=== PATIENT | female | born 1995 | race Caucasian/White ===

== ENCOUNTER → 2016-08-05 | Outpatient (CLI) | payer OTHER ==
[2016-08-05 12:22] LABS: HEMATOCRIT 39.3 % (37.0-47.0); HEMOGLOBIN 13.3 g/dL (12.0-16.0)
== END ==
LOC: MOB LAB 11:46
PROVIDERS: ATTEND Nurse Practitioner Family
DX: N92.0 Excessive and frequent menstruation with regular cycle (principal); N94.6 Dysmenorrhea, unspecified; N93.8 Other specified abnormal uterine and vaginal bleeding
CPT/HCPCS: 36415; 85014; 85018

== ENCOUNTER → 2016-08-06 | Outpatient (CLI) | payer OTHER ==
--- NOTE | 2016-08-06 17:02 | DI ---
History: Menorrhagia. Procedure: Transabdominal imaging with mid frequency transducer. Findings: Uterine length is 5.5 x 5 x 4.3 cm. No free fluid seen. No large mass observed but there is a small myometrial uterine leiomyoma noted anteriorly just below the fundus. Is 1.9 x 1.2 x 1.5 cm a nd may contribute to the patient's menorrhagia. Endometrial stripe thickness is 3 mm currently. Right ovary is 4.8 x 2.8 x 4.7 cm with good flow. The left ovary is 3.8 x 2.3 x 3.3 cm, again good fl ow observed. There is a cyst in the right ovary, somewhat complex at 3.9 x 2.8 x 4.2 cm, which accoun ts for the increased size the right ovary. No solid mass identified. Impression: Single anterior uterine leiomyoma which may account for menorrhagia Right ovarian cyst, probably cyclical. Size would possibly account for pain. Repeat ultrasound may be considered in 6 weeks to document subsidence
--- NOTE | 2016-08-06 17:07 | DI ---
History: Menorrhagia. . This procedure was performed transvaginally using a high frequency transducer. Findings: See separate dictation regarding uterine alignment,. Regarding the left ovary, it has normal size and configuration. There is a fairly sizable right ovari an cyst centrally which occupies a good portion of the ovarian volume right-sided. As seen on the [facility] er report, is 3.9 x 2.8 x 4.2 cm without solid component but does contain what appears to be a cyst w ithin a cyst or perhaps a blood vessel. No free fluid seen. Impression: Uterine leiomyoma. See separate report. Fairly sizable right ovarian cyst. Suggest followup ultrasound in 6 weeks to document subsidence
== END ==
LOC: US 13:54
PROVIDERS: ATTEND Nurse Practitioner Family
DX: N92.0 Excessive and frequent menstruation with regular cycle (principal); N83.201 Unspecified ovarian cyst, right side; D25.9 Leiomyoma of uterus, unspecified
CPT/HCPCS: 76830; 76857

== ENCOUNTER 2016-08-13 21:40 | Emergency (ER) | payer OTHER ==
[2016-08-13 21:53] VITALS: RESP 20; TEMP 98
[2016-08-13] MEDS ORDERED: NORMAL SALINE 10 ML SYRINGE FLUSH IVP PRN (22:02)
[2016-08-13] MEDS: Sodium Chloride 0.9% 1,000 ML PRIMARY IV ONE ×2 (22:45→23:45)
[2016-08-13] MEDS: MORPHINE SULFATE 2 MG/1 ML IV ONE (22:50)
[2016-08-13 23:03] LABS: BASOPHILS # (AUTO) 0.01 10*3/UL; BASOPHILS % (AUTO) 0.1 % (0-1); EOSINOPHILS % (AUTO) 1.4 % (0-8); HEMATOCRIT 40.4 % (37.0-47.0); HEMOGLOBIN 13.8 g/dL (12.0-16.0); IMM GRAN % (AUTO) 0.2 % (0-5); IMM GRAN# (AUTO) 0.02 10*3/UL; LYMPHOCYTES # (AUTO) 2.05 10*3/uL; LYMPHOCYTES % (AUTO) 23.2 % (10-50); MEAN CORPUSCULAR HEMOGLOBIN 29.6 PG (27-31); MEAN CORPUSCULAR HGB CONC 34.2 g/dL (33-37); MEAN PLATELET VOLUME 11.6 FL (7.4-12.2); MONOCYTES # (AUTO) 0.61 10*3/UL (0.3-0.8); MONOCYTES % (AUTO) 6.9 % (5-15); NEUTROPHILS # (AUTO) 6.02 10*3/UL; NEUTROPHILS % (AUTO) 68.2 % (50-80); RDW COEFFICIENT OF VARIATION 13.5 % (11.5-14.5); RED BLOOD COUNT 4.67 10^6/uL (4.20-5.40); WHITE BLOOD COUNT 8.83 10^3/uL (4.8-10.8)
[2016-08-13 23:04] LABS: PLATELET MORPHOLOGY COMMENT NORMAL MORPHOLOGY (NORM)
[2016-08-13 23:05] LABS: AMYLASE 54 U/L (30-110); ASPARTATE AMINO TRANSFERASE 20 IU/L (8-39); BILIRUBIN,TOTAL 0.4 mg/dL (0.3-1.2); BLOOD UREA NITROGEN 10 mg/dL (7-22); BUN/CREATININE RATIO 14.28 (6-20); CALCIUM 9.5 mg/dL (8.7-10.7); CHLORIDE 107 meq/L (98-112); CREATININE 0.7 mg/dL (0.50-1.20); EST GLOMERULAR FILTRATION > 60 (>60 ml/min/1.73m(2)); GLUCOSE 84 mg/dL (78-110); POTASSIUM 3.7 meq/L (3.8-5.2); SODIUM 142 meq/L (135-145); TOTAL PROTEIN 7.6 g/dL (6.1-8.0)
[2016-08-13 23:24] LABS: BILIRUBIN,URINE NEGATIVE (NEG); CLARITY,URINE CLEAR (CLEAR); GLUCOSE, URINE (UA) NEGATIVE (NEG); LEUKOCYTE ESTERASE ,URINE NEGATIVE (NEG); NITRATE,URINE NEGATIVE (NEG); PROTEIN,URINE NEGATIVE (NEG); UROBILINOGEN,URINE 0.2 EU/dL (0.2)
[2016-08-13 23:26] LABS: OCCULT BLOOD,URINE Trace-intact (NEG)
[2016-08-13 23:29] LABS: URINE SAMPLE TYPE CLEAN CATCH URINE
[2016-08-13 23:30] LABS: BACTERIA,URINE RARE; SQUAMOUS EPITHELIAL CELL,UR FEW
[2016-08-14] MEDS: MORPHINE SULFATE 2 MG/1 ML IV ONE (00:43)
--- NOTE | 2016-08-14 01:13 | DI ---
HISTORY: Pelvic pain with known ovarian cyst. COMPARISON: None. TECHNIQUE: Transabdominal ultrasound of the pelvis was performed. FINDINGS: The bladder is not distended which does limit the evaluation. The uterus measures 7.9 x 5. 6 x 3.9 cm. The uterus appears retroverted. The endometrial stripe was not well imaged. No definite m easurement was obtained. The right ovary measures 3.0 x 2.3 x 1.5 cm. The left ovary measures 3.4 x 2.4 x 2.2 cm. Normal arter ial and venous waveforms are seen within the ovaries. No significant free fluid is seen within the pelvis. IMPRESSION: 1. The exam is felt to be mildly limited due to lack of urinary bladder distention and due to a retro verted uterus. The endometrial stripe could not be seen. 2. Normal appearance of the ovaries. NOTE: The interpreting Radiologist was not present at the time of ultrasound interrogation.
--- NOTE | 2016-08-14 02:01 | PDOC ---
Abdomen/Flank HPI - General Chief Complaint: Abdomen Pain Stated Complaint: LOWER MID ABDOMINAL CRAMPING PAIN X 15 MIN. Date Seen by Provider: 08/13/16 Time Seen by Provider: 21:50 Source: POSITIVE: Patient, Spouse Exam Limitations: POSITIVE: No limitations Nurse's Notes Reviewed & Considered: Yes - History of Present Illness Initial Comments: The patient is a 20-year-old female. She states that she has had lower abdominal discomfort for a few days. She was seen by her primary care provider recently and had a pelvic ultrasound done August 06 which showed a right ovarian cyst measuring 3.9 x 2.8 x 4.2 cm which was cystic in appearance. She states that her menses started 01 August and she has an implanted control device. 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 No fever or chills. No vomiting, diarrhea, melena, hematochezia, hematemesis, dysuria or hematuria. She's had no previous abdominal surgery except for a . Body Location Affected: REPORTS: Abdomen Timing: REPORTS: Abrupt Duration: >24 hours Severity: Moderate Quality: REPORTS: "Pain" Abdominal Pain Onset Location: REPORTS: Suprapubic Abdominal Pain Radiation: REPORTS: No radiation Context: REPORTS: None Modifying Factors: improves with: Nothing Associated Symptoms: REPORTS: Nausea Similar Symptoms Previously: Yes (as above) Recent Care Received: REPORTS: Recently Seen (As above) Any Prior Injuries Related to Current Complaint?: No - Patient Home Medications Home Medications: Home Medications Acetaminophen with Codeine [Tylenol With Codeine #4 Tablet] 1 tab PO Q4-6H #20 tab 08/11/16 Tizanidine HCl 1 - 2 tab PO Q8H PRN #20 tab 08/11/16 - Patient Allergies Allergies/Adverse Reactions: Allergies Allergy/AdvReac Type Severity Reaction Status Date / Time nifedipine [From Procardia] Allergy Intermediate RASH Verified 08/13/16 21:48 Sulfa (Sulfonamide Allergy RASH PER Verified 08/13/16 21:48 Antibiotics) MOTHER Past Medical History - heen HEENT History: Denies History Cardiovascular History: Denies History Respiratory History: Denies History Gastrointestinal History: Denies History Genitourinary History: Other (please comment) Additional Genitourinary History: UTI in December 2014, renuka Endocrine History: Denies History Musculoskeletal History: Denies History Neurological History: Denies History Blood Disorders: Denies History Psychiatric History: Denies History History of Sexually Transmitted Diseases: No Female Reproductive History: Denies History Obstetrical History: Delivery Cancer History: Denies History In Past Year Been Physically Harmed or Verbally Threatened: No History of MDRO: No History of Other Communicable Diseases: No Tobacco Use: Never Smoker Alcohol Use: None Substance Use Type: None Previous Surgical History: No Significant Family History: No pertinent family hx Past Medical History Reviewed: Reviewed - No Changes ROS - Limitations ROS Limitations: No Limitations Constitution: REPORTS: Denies Symptoms Cardiovascular: REPORTS: Denies Cardiac Symptoms Respiratory: REPORTS: Denies Resp Symptoms Neurological: REPORTS: Denies Neuro Symptoms Gastrointestinal: REPORTS: Abdominal Pain, Nausea Endocrine: REPORTS: Denies Symptoms Musculoskeletal: REPORTS: Denies MS Symptoms Genitourinary: REPORTS: Denies Symptoms Eyes: REPORTS: Denies Symptoms ENT: REPORTS: Denies Symptoms Skin: REPORTS: Denies Skin Symptoms Lympathic: REPORTS: Denies Lympathic Symptoms Immunologic: POSITIVE: Denies Symptoms Psychiatric: POSITIVE: Denies Psych Symptoms Abdominal/Flank Pain PE - General Appearance General Appearance: POSITIVE: Alert, Cooperative, No Acute Distress, No Evidence of Trauma - HEENT HEENT: POSITIVE: Head Inspection Nml, Eyes Inspection Nml, Ears Inspection Nml, Nose Inspection Nml, Oral/Dental Inspect. Nml, Pharynx Inspect. Nml, PERRL, EOMI - Neck Neck: POSITIVE: Normal Inspection, No Apparent Injury - Respiratory Respiratory: POSITIVE: No Respiratory Distress, Breath Sounds Normal, Chest Non- Tender - Cardiovascular Cardiovascular: POSITIVE: Regular Rate and Rhythm, Heart Sounds Normal, Equal Pulses, Strong Pulses Peripheral Pulses: Radial (R): 2+, Radial (L): 2+ - Chest Chest: POSITIVE: Non Tender - Abdomen Abdomen: Soft: (All Quadrants), Normal Bowel Sounds: (All Quadrants), Denies Tenderness: (RUQ), (LUQ), No Splenomegaly: (All Quadrants), No Hepatomegaly: ( All Quadrants), No Guarding: (All Quadrants), No Rebound: (All Quadrants), No Palpable Pulse: (All Quadrants), No Palpabale Mass: (All Quadrants), No Distention: (All Quadrants), No Rigidity: (All Quadrants), Tenderness Noted: ( RLQ), (LLQ) (some discomfort expressed on firm deep direct palpation suprapubic area) Additional Abdominal Details: Abdominal examination shows bowel sounds to be active. There is some discomfort expressed on firm deep direct palpation over the suprapubic area. No masses, organomegaly or rebound. - Back Back: POSITIVE: Normal Inspection - Skin Skin: POSITIVE: Intact, Normal For Race, Warm, Dry, No Rash - Extremities Extremity: Non-Tender: (All Extremities), Normal ROM: (All Extremities), Normal Inspection: (All Extremities) - Neurological Neurological: POSITIVE: Oriented X3, blade sharpener Normal As Tested, Motor Normal, Sensation Normal, 5, 6 - Psychological Psychiatric: POSITIVE: Affect Appropriate, Mood Appropriate Images - Complete Complete: 1 - Some mild discomfort on firm deep direct palpation Abdomen Progress - Results Reviewed by me Xrays/CTs/US Reviewed by me: Yes Discussed with Radiologist: Yes Radiology Findings: Motion Graphics Designer reports normal appearing ovaries with good ovarian blood flow. No free fluid. Lab Results Reviewed: Yes Lab Results:: Laboratory Results 08/13/16 08/13/16 Range/Units 22:54 23:20 WBC 8.83 (4.8-10.8) 10^3/uL RBC 4.67 (4.20-5.40) 10^6/uL Hgb 13.8 (12.0-16.0) g/dL Hct 40.4 (37.0-47.0) % MCV 86.5 (81-99) FL MCH 29.6 (27-31) PG MCHC 34.2 (33-37) g/dL RDW Std Deviation 41.8 (39-50) fL RDW Coeff of Shiv 13.5 (11.5-14.5) % Plt Count 270 (140-350) 10*3/uL MPV 11.6 (7.4-12.2) FL Immature Gran % (Auto) 0.2 (0-5) % Neut % (Auto) 68.2 (50-80) % Lymph % (Auto) 23.2 (10-50) % [place] % (Auto) 6.9 (5-15) % Eos % (Auto) 1.4 (0-8) % Baso % (Auto) 0.1 (0-1) % Immature Gran # (Auto) 0.02 10*3/UL Neut # (Auto) 6.02 10*3/UL Lymph # (Auto) 2.05 10*3/uL [place] # (Auto) 0.61 (0.3-0.8) 10*3/UL Eos # (Auto) 0.12 10*3/UL Baso # (Auto) 0.01 10*3/UL WBC Morphology Comment Normal morphology (NORM) Plt Morphology Comment Normal morphology (NORM) RBC Morph Comment Normal morphology (NORM) Sodium 142 (135-145) meq/L Potassium 3.7 L (3.8-5.2) meq/L Chloride 107 (98-112) meq/L Carbon Dioxide 22 L (23-33) meq/L Anion Gap 13 (5-20) BUN 10 (7-22) mg/dL Creatinine 0.7 (0.50-1.20) mg/dL Estimated GFR > 60 (>60 ml/min/1.73m(2)) BUN/Creatinine Ratio 14.28 (6-20) Glucose 84 (78-110) mg/dL Calculated Osmolality 291.0 (267-292) mOsm/kg Calcium 9.5 (8.7-10.7) mg/dL Total Bilirubin 0.4 (0.3-1.2) mg/dL AST 20 (8-39) IU/L ALT 26 (9-52) IU/L Alkaline Phosphatase 77 (50-259) IU/L Total Protein 7.6 (6.1-8.0) g/dL Albumin 4.6 (3.7-5.6) g/dL Globulin 2.9 (2.50-4.10) g/dL Albumin/Globulin Ratio 1.50 (1.3-2.0) mg/g Amylase 54 (30-110) U/L Lipase 33 (23-300) IU/L Serum HCG, Qual Negative Ur Collection Type Clean catch urine Urine Color Yellow Urine Clarity Clear (CLEAR) Urine pH 7.0 (5.0-8.5) Ur Specific [place] 1.020 (1.005-1.030) Urine Protein Negative (NEG) mg/dl Urine Glucose (UA) Negative (NEG) mg/dL Urine Ketones Negative (NEG) Urine Occult Blood Trace-intact H (NEG) Urine Nitrate Negative (NEG) Urine Bilirubin Negative (NEG) Urine Urobilinogen 0.2 (0.2) EU/dL Ur Leukocyte Esterase Negative (NEG) Urine RBC 1-3 (NONE) /hpf Urine WBC 1-3 (NONE) Ur Squamous Epith Cells Few (NONE) Ur Renal Epithelial Cell None (NONE) Urine Crystals None Urine Bacteria Rare (NONE) Urine Casts None (NONE) Urine Mucus Moderate (NONE) Urine Trichomonas None (NONE) Urine Yeast None (NONE) Ur Culture Indicated? Culture not set - Patient's Progress Pain Medication Addressed: POSITIVE: Yes (Morphine 4 mg IV given) School/Work Release Addressed: POSITIVE: Not Applicable Re-examine Time: 01:00 Re-Examine Comment: Patient had one episode of emesis in ER and she states she feels better afterwards. Asymptomatic on discharge. Abdomen completely nontender. Status: POSITIVE: Improved, Re-Examined - Consult Counseled: POSITIVE: Patient, Family, RE: Lab Results, RE: Radiology Results, RE : DX, RE: Need for F/U Patient Care Time - Estimated PCT Patient Care Time (In Minutes): 53 Vital Signs - Recent Vital Signs Vital Signs: Vital Signs (Last 8 hours) Temp Pulse Resp BP Pulse Ox 08/13/16 21:48 98.0 F 94 20 126/60 94 - VS Reviewed Vital Signs Reviewed: Yes Discharge Clinical Impression: Abdominal pain, Ovarian cyst Discharge Disposition: Discharged to Home Condition: Stable Patient Instructions Given at Discharge: Ovarian Cyst (ED), Acute Abdominal Pain (ED) Additional Instructions: I believe her abdominal discomfort is probably coming from your ovarian cyst. There is, however, no SONOGRAPHIC evidence of a ruptured ovarian cyst or a torsed ovary. I'm glad you're feeling better and I believe you will be fine. Clear liquid diet for 12 hours. Tylenol for discomfort. Return any time if pain worsens, if you develop fevers or persistent vomiting, or if your condition worsens in any way. Follow-up with your primary care provider. Follow Up With: Margaret Kendrick FNP [Primary Care Provider] - (Instructions as above. Return anytime if condition worsens. Follow-up with your primary care provider. )
== END 2016-08-14 01:14 | disposition home or self-care (01) ==
LOC: ER 21:40
DX: R10.30 Lower abdominal pain, unspecified (principal)
CPT/HCPCS: 36415; 76856; 80053; 81001; 81003; 82150; 83690; 84703; 85025; 96361; 96374; 99283; J2270; J7030

== ENCOUNTER 2016-09-19 22:27 | Emergency (ER) | payer OTHER ==
[2016-09-19 22:38] VITALS: RESP 18; TEMP 98.2
--- NOTE | 2016-09-19 23:23 | PDOC ---
Hand / Wrist Injury HPI - General Chief Complaint: Upper Extremity Problem/Injury Stated Complaint: Wrist Injury Date Seen by Provider: 09/19/16 Time Seen by Provider: 22:35 Source: POSITIVE: Patient Exam Limitations: POSITIVE: No limitations Nurse's Notes Reviewed & Considered: Yes - History of Present Illness Initial Comments: The patient is a 21-year-old female. 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 She fell onto her outstretched left hand. She complains of pain over the dorsum of the left wrist. No paresthesias or sensory or motor symptoms she denies any other injuries. Have you received a tetanus shot in the past 10 years?: Yes Body Location Affected: REPORTS: Upper Extremity (L) Timing: REPORTS: Abrupt Duration: 1 hour Severity: Moderate Location at Time of Onset: REPORTS: Home Context: REPORTS: Fall, Blow Location of Injury: REPORTS: Left, Wrist Quality: REPORTS: "Pain" Modifying Factors: REPORTS: Movement, Other (Exacerbated by direct palpation) Associated Symptoms: DENIES: Arm (R), Arm (L), Tingling Distally, Numbness Distally, Loss of Feeling, Loss of Power, Other Any Prior Injuries Related to Current Complaint?: No - Patient Home Medications Home Medications: Home Medications Acetaminophen with Codeine [Tylenol With Codeine #4 Tablet] 1 tab PO Q4-6H #20 tab 08/11/16 Hydrocortisone/Pramoxine [Proctofoam-Hc 1%-1% Foam] 1 appful RECTAL QID #120 appful 08/31/16 Tizanidine HCl 1 - 2 tab PO Q8H PRN #20 tab 08/31/16 Levonorgestrel-Ethin Estradiol [Lessina-28 Tablet] 1 tab PO DAILY #1 packet - Patient Allergies Allergies/Adverse Reactions: Allergies Allergy/AdvReac Type Severity Reaction Status Date / Time nifedipine [From Procardia] Allergy Intermediate RASH Verified 09/19/16 22:33 Sulfa (Sulfonamide Allergy RASH PER Verified 09/19/16 22:33 Antibiotics) MOTHER Past Medical History - heen HEENT History: Denies History Cardiovascular History: Denies History Respiratory History: Denies History Gastrointestinal History: Denies History Genitourinary History: Other (please comment) Additional Genitourinary History: UTI in December 2014, renuka Endocrine History: Denies History Musculoskeletal History: Denies History Neurological History: Denies History Blood Disorders: Denies History Psychiatric History: Denies History History of Sexually Transmitted Diseases: No Female Reproductive History: Denies History Obstetrical History: Denies History Cancer History: Denies History In Past Year Been Physically Harmed or Verbally Threatened: No History of MDRO: No History of Other Communicable Diseases: No Tobacco Use: Never Smoker Alcohol Use: None Substance Use Type: None Previous Surgical History: No Significant Family History: No pertinent family hx Past Medical History Reviewed: Reviewed - No Changes ROS - Limitations ROS Limitations: No Limitations Constitution: REPORTS: Denies Symptoms Cardiovascular: REPORTS: Denies Cardiac Symptoms Respiratory: REPORTS: Denies Resp Symptoms Neurological: REPORTS: Denies Neuro Symptoms Gastrointestinal: REPORTS: Denies GI Symptoms Endocrine: REPORTS: Denies Symptoms Musculoskeletal: REPORTS: Joint Pain (Left wrist) Genitourinary: REPORTS: Denies Symptoms Eyes: REPORTS: Denies Symptoms ENT: REPORTS: Denies Symptoms Skin: REPORTS: Denies Skin Symptoms Lympathic: REPORTS: Denies Lympathic Symptoms Immunologic: POSITIVE: Denies Symptoms Psychiatric: POSITIVE: Denies Psych Symptoms Hand / Wrist Injury Exam - General Appearance General Appearance: POSITIVE: Alert, Cooperative, No Acute Distress. NEGATIVE: No Evidence of Trauma - Extremities Upper Extremity: POSITIVE: No Evidence of FB, Normal ROM, Soft Tissue Tenderness , Bony Tenderness, Swelling (mild swelling dorsum of left wrist), Snuff Box Position Tender, Uninjured Above Wrist, See Diagram. NEGATIVE: Ecchymosis, Deformity, Complete Nail Injury, Partial Avulsion, Limited ROM, Limited ROM d/t Pain, Axial Thumb Load Pain Neurovascular / Tendon: POSITIVE: Sensation Normal, Motor Normal, No Vascular Compromise, Tendon Function Normal Skin: POSITIVE: Warm, Dry - Neck / Back Neck/Back: POSITIVE: Normal Inspection, Non-Tender, Painless ROM - Respiratory / CVS Respiratory / CVS: POSITIVE: Chest Non Tender, No Ecchymosis, Breath Sounds Normal, No Respiratory Distress, Heart Sounds Normal, Regular Rate/Rhythm Peripheral Pulses: Radial (R): 2+, Radial (L): 2+ Images - Hands Hand: 1 - Pain on palpation, including snuffbox Procedure - Splinting Time Splint Applied: 22:50 Location: left wrist, thumb spica Pre-Proc Neuro Vasc Exam: Normal Splint Type: Ortho-Glass Splint Form: Thumb Spica (Left) Applied By:: Video Effects Editor Post-Proc Neuro Vasc Exam: Normal Hand / Wrist Injury Progress - Results Reviewed by me Xrays/CTs/US Reviewed by me: Yes Discussed with Radiologist: No Radiology Findings: No definite wrist fractures or dislocations seen by my interpretation; radiologist interpretation pending. An occult navicular fracture cannot be ruled out. Thumb spica splint placed. - Patient's Progress Pain Medication Addressed: POSITIVE: Yes (recommended Advil or Tylenol) School/Work Release Addressed: POSITIVE: Yes (must wear splint and cannot remove until reevaluation) Re-Examine Time: 23:15 Re-Examine Comment: Good pain relief with splinting Status: POSITIVE: Improved, Re-Examined - Consult Counseled: POSITIVE: Patient, RE: Radiology Results, RE: DX, RE: Need for F/U Patient Care Time - Estimated PCT Patient Care Time (In Minutes): 30 Vital Signs - Recent Vital Signs Vital Signs: Vital Signs (Last 8 hours) Temp Pulse Resp BP Pulse Ox 09/19/16 22:34 98.2 F 86 18 98/71 94 - VS Reviewed Vital Signs Reviewed: Yes Discharge Clinical Impression: Wrist sprain Discharge Disposition: Discharged to Home Condition: Stable Patient Instructions Given at Discharge: Wrist Injury (ED) Additional Instructions: I do not see any definite fractures on your x-ray. However, occasionally you can have a fracture of the wrist which does not show up on the initial x-ray. Therefore, we have placed her wrist in a splint. Keep the splint on and do not remove it. Follow-up in in the orthopedic clinic or with your primary care provider in 7-10 days for reevaluation. Advil or Tylenol for discomfort. Elevate hand. Return here anytime if condition worsens in any way whatsoever. Follow Up With: NONE,NONE [Primary Care Provider] - (Instructions as above. Keep your wrist splinted and follow-up with your primary care provider or orthopedist in 7-10 days. Return here anytime if condition worsens.)
--- NOTE | 2016-09-20 09:17 | DI ---
LEFT WRIST, 09/19/2016 10:36 PM: Clinical History: Injury. Pain. Previous Exam: None at this facility. 3 views are submitted. There is no acute soft tissue, osseous, or joint abnormality. Reading: Normal left wrist exam.
== END 2016-09-19 23:32 | disposition home or self-care (01) ==
LOC: ER 22:27
DX: S63.501A Unspecified sprain of right wrist, initial encounter (principal); W00.0XXA Fall on same level due to ice and snow, initial encounter
CPT/HCPCS: 29125; 73110; 99282

== ENCOUNTER → 2016-11-10 | Outpatient (CLI) | payer OTHER ==
--- NOTE | 2016-11-10 16:43 | DI ---
PELVIC ULTRASOUND, 11/10/2016 1:09 PM Clinical History: Ovarian cyst. Menorrhagia with irregular cycles. Previous Exam: 08/14/2016. Technique: Transabdominal and transvaginal scans are performed. The uterus measures approximately 45 x 55 x 85 mm. The central uterine stripe measures 10 mm in the f undal region. There is a small focus of hypoechogenicity in the anterior aspect of the fundus of the uterus consistent with a small fibroid measuring about 12 mm in diameter. The right ovary is normal. There is a simple cyst of the left ovary measuring approximately 35-40 mm in diameter. There are no f luid collections or masses. Readin. The uterus is unremarkable except for a small fibroid in the anterior aspect of the fundus measur ing roughly 12 mm in diameter. The central uterine stripe measures 10 mm. 2. The right ovary is normal and on the previous study, a cyst was present. The left ovary now has a simple cyst measuring 35-40 mm in diameter.
== END ==
LOC: US 12:49
PROVIDERS: ATTEND Family Medicine
DX: N92.0 Excessive and frequent menstruation with regular cycle (principal); N83.201 Unspecified ovarian cyst, right side; D25.9 Leiomyoma of uterus, unspecified
CPT/HCPCS: 76830; 76856

== ENCOUNTER → 2017-01-06 | Outpatient (CLI) | payer OTHER ==
[2017-01-06 12:01] LABS: BILIRUBIN,URINE NEGATIVE (NEG); CLARITY,URINE Slightly Cloudy (CLEAR); COLOR,URINE YELLOW; GLUCOSE, URINE (UA) NEGATIVE (NEG); NITRATE,URINE POSITIVE (NEG); OCCULT BLOOD,URINE MODERATE (NEG); PH,URINE 5.5 (5.0-8.5); PROTEIN,URINE NEGATIVE (NEG); UROBILINOGEN,URINE 0.2 mg/dL (0.2)
[2017-01-06 12:08] LABS: RBC,URINE 15-20 /hpf; URINE SAMPLE TYPE CLEAN CATCH URINE
[2017-01-06 12:09] LABS: BACTERIA,URINE MODERATE; SQUAMOUS EPITHELIAL CELL,UR FEW
== END ==
LOC: MOB LAB 10:19
PROVIDERS: ATTEND Nurse Practitioner Family
DX: N39.0 Urinary tract infection, site not specified (principal); R30.0 Dysuria
CPT/HCPCS: 81001; 87077; 87088; 87186

== ENCOUNTER 2017-03-06 21:55 | Emergency (ER) | payer OTHER ==
[2017-03-06 22:09] VITALS: RESP 16; TEMP 96.2
[2017-03-06] MEDS ORDERED: NORMAL SALINE 10 ML SYRINGE FLUSH IVP PRN (22:09)
[2017-03-06] MEDS ORDERED: diphenhydrAMINE 50 MG/1 ML VIAL IVP ONE (22:10)
--- NOTE | 2017-03-06 22:16 | EKG ---
[address] [address] Measurements Intervals [place] Rate: 66 P: 30 [place]: 144 QRS: 52 QRSD: 98 T: 37 QT: 371 QTc: 385 Interpretive Statements SINUS RHYTHM No previous ECG available for comparison Electronically Signed On 03-07-17 14:11:05 MDT by Ramon Ferraro [email or web address]
--- NOTE | 2017-03-06 22:46 | PDOC ---
General Adult HPI - General Chief Complaint: Respiratory Complaint Stated Complaint: DYSPNEA WITH THROAT FEELS TIGHT Date Seen by Provider: 03/06/17 Time Seen by Provider: 22:10 Source: POSITIVE: Patient Exam Limitations: POSITIVE: No limitations Nurse's Notes Reviewed & Considered: Yes - History of Present Illness Initial Comment: The patient is a 21-year-old female who presents to the emergency room with complaints of chest pains and shortness of breath. She states that she has a history of recurrent headaches for which she normally takes Imitrex. She states that earlier this evening at approximately 6 PM she had onset of headache and subsequently took her Imitrex. Shortly afterward she had onset of some chest pains as well as shortness of breath. She feels like her throat is tight. She denies any itching or rash. She has taken Imitrex multiple times in the past without any issues. She states that she still does have some headache as well. She denies any recent illness otherwise. She does report that her menstrual cycle is approximately 3 weeks late. She did do a home test earlier today which was negative. She does report some intermittent nausea. She does have an implanted control and her left arm. Have you received a tetanus shot in the past 10 years?: Yes - Patient Home Medications Home Medications: Home Medications Sumatriptan Succinate [Imitrex] 25 mg PO PRN 03/06/17 - Patient Allergies Allergies/Adverse Reactions: Allergies Allergy/AdvReac Type Severity Reaction Status Date / Time nifedipine [From Procardia] Allergy Intermediate RASH Verified 03/06/17 22:00 Sulfa (Sulfonamide Allergy RASH PER Verified 03/06/17 22:00 Antibiotics) MOTHER Past Medical History - heen HEENT History: Denies History Cardiovascular History: Denies History Respiratory History: Denies History Gastrointestinal History: Denies History Genitourinary History: Other (please comment) Additional Genitourinary History: UTI in December 2014, [place] Endocrine History: Denies History Musculoskeletal History: Denies History Prosthesis or Implant: No Neurological History: Migraines Blood Disorders: Denies History Psychiatric History: Denies History History of Sexually Transmitted Diseases: No Female Reproductive History: Denies History LMP: 3 WEEKS LATE Obstetrical History: Denies History Cancer History: Denies History In Past Year Been Physically Harmed or Verbally Threatened: No History of MDRO: No History of Other Communicable Diseases: No Tobacco Use: Never Smoker Alcohol Use: None Substance Use Type: None Previous Surgical History: No Significant Family History: No pertinent family hx Past Medical History Reviewed: Reviewed - No Changes ROS - Limitations ROS Limitations: No Limitations Constitution: DENIES: Chills, Fever Cardiovascular: REPORTS: Chest Pain. DENIES: Heart Palpitations, Edema Respiratory: REPORTS: Shortness Of Breath. DENIES: Cough Non Productive, Cough Productive, Hurts To Breathe Neurological: REPORTS: Headache. DENIES: Dizziness, Numbness, Fainting, Weakness Gastrointestinal: REPORTS: Nausea. DENIES: Abdominal Pain, Vomitting, Diarrhea Musculoskeletal: REPORTS: Denies MS Symptoms Genitourinary: REPORTS: Denies Symptoms Eyes: REPORTS: Denies Symptoms ENT: REPORTS: Denies Symptoms Skin: DENIES: Rash General Adult Exam - General Appearance General Appearance: POSITIVE: Alert, Cooperative, No Acute Distress - HEENT HEENT: POSITIVE: Head Inspection Nml, Eyes Inspection Nml, Ears Inspection Nml, Nose Inspection Nml, Pharynx Inspect. Nml, PERRL, EOMI - Neck Neck: POSITIVE: Normal Inspection. NEGATIVE: Lymphadenopathy - Respiratory Respiratory: POSITIVE: No Respiratory Distress, Breath Sounds Normal - Cardiovascular Cardiovascular: POSITIVE: Regular Rate & Rhythm, No Murmur Peripheral Pulses: Dorsalis-pedis (R): 2+, Dorsalis-pedis (L): 2+ - Abdomen Abdomen: Soft: (All Quadrants), Denies Tenderness: (All Quadrants), No Guarding : (All Quadrants), No Rebound: (All Quadrants), No Distention: (All Quadrants) - Back Back: POSITIVE: Normal Inspection - Skin Skin: POSITIVE: Normal Color, No Rash - Extremities Extremity: Normal ROM: (All Extremities), Normal Inspection: (All Extremities) - Neurological / Psychological Neurological: POSITIVE: Oriented X3, Motor Normal, Sensation Normal General Adult Progress - Results Reviewed by me Lab Results Reviewed: Yes Lab Results:: Laboratory Results 03/06/17 Range/Units 23:19 WBC 7.80 (4.8-10.8) 10^3/uL RBC 4.49 (4.20-5.40) 10^6/uL Hgb 13.5 (12.0-16.0) g/dL Hct 39.6 (37.0-47.0) % MCV 88.2 (81-99) FL MCH 30.1 (27-31) PG MCHC 34.1 (33-37) g/dL RDW Std Deviation 42.8 (39-50) fL RDW Coeff of Shiv 13.5 (11.5-14.5) % Plt Count 259 (140-350) 10*3/uL MPV 11.1 (7.4-12.2) FL Immature Gran % (Auto) 0.3 (0-5) % Neut % (Auto) 56.2 (50-80) % Lymph % (Auto) 33.7 (10-50) % Rogers % (Auto) 6.8 (5-15) % Eos % (Auto) 1.5 (0-8) % Baso % (Auto) 1.5 H (0-1) % Immature Gran # (Auto) 0.02 10*3/UL Neut # (Auto) 4.38 10*3/UL Lymph # (Auto) 2.63 10*3/uL Rogers # (Auto) 0.53 (0.3-0.8) 10*3/UL Eos # (Auto) 0.12 10*3/UL Baso # (Auto) 0.12 10*3/UL WBC Morphology Comment Normal morphology (NORM) Plt Morphology Comment Normal morphology (NORM) RBC Morph Comment Normal morphology (NORM) D-Dimer < 0.19 (0.00-0.59) mg/L Sodium 138 (135-145) meq/L Potassium 4.0 (3.8-5.2) meq/L Chloride 107 (98-112) meq/L Carbon Dioxide 20 L (23-33) meq/L Anion Gap 11 (5-20) BUN 10 (7-22) mg/dL Creatinine 0.7 (0.50-1.20) mg/dL Estimated GFR > 60 (>60 ml/min/1.73m(2)) BUN/Creatinine Ratio 14.28 (6-20) Glucose 94 (78-110) mg/dL Calculated Osmolality 284.0 (267-292) mOsm/kg Calcium 9.3 (8.7-10.7) mg/dL Total Bilirubin 0.3 (0.3-1.2) mg/dL AST 26 (8-39) IU/L ALT 24 (9-52) IU/L Alkaline Phosphatase 65 (38-126) IU/L Troponin I < 0.012 (< 0.040) ng/mL Total Protein 7.1 (6.1-8.0) g/dL Albumin 4.2 (3.5-4.8) g/dL Globulin 2.8 (2.50-4.10) g/dL Albumin/Globulin Ratio 1.50 (1.3-2.0) mg/g TSH 3.16 (0.2700-4.2000) uIU/mL Serum HCG, Qual Negative EKG Interpreted/Reviewed By Me:: Yes EKG Interpretation:: POSITIVE: Normal Sinus Rhythm, Normal Rate, Normal Intervals, Normal QRS, Normal ST/T - Patient's Progress MDM / ED Course: The patient's vital signs were stable on arrival. Her initial EKG shows normal sinus rhythm with no acute ST segment or T-wave changes. She was given Benadryl 25 mg by mouth with improvement in symptoms. The chest tightness and shortness of breath resolved. She continued to have some low-grade headache. All of her blood work is essentially unremarkable with normal troponin and normal d-dimer. Symptoms are most likely caused by medication reaction to the Imitrex. She is advised to rest and push fluids. She will return to the emergency room if any worsening or change in symptoms. She'll follow-up with primary care in 3-5 days. - Consult Counseled: POSITIVE: Patient, RE: Lab Results, RE: DX, RE: Need for F/U Patient Care Time - Estimated PCT Patient Care Time (In Minutes): 35 Vital Signs - Recent Vital Signs Vital Signs: Vital Signs (Last 8 hours) Temp Pulse Resp BP Pulse Ox 03/06/17 22:00 96.2 F L 61 16 127/84 95 - VS Reviewed Vital Signs Reviewed: Yes Discharge Clinical Impression: Medication reaction, Chest pain, Headache Discharge Disposition: Discharged to Home Condition: Stable Patient Instructions Given at Discharge: Chest Pain (ED), Adverse Drug Reaction (ED), General Headache (ED) Additional Instructions: The testing done here in the emergency department is reassuring. The EKG in your heart was normal. The blood work revealed no evidence of blood clot, heart damage, infection. Your electrolytes, kidney function, liver function and blood sugar were normal. In addition your test was negative and your thyroid function was normal. The most likely cause of the chest tightness and shortness of breath was a reaction to the Imitrex that was taken just prior to onset of symptoms. This is a potential side effect of this medication. The symptoms seem to have improved. Recommend rest and push fluids. Return to the emergency room if any worsening or change in symptoms. Recommend follow-up with primary care to discuss further treatments of recurrent headaches. Follow Up With: SANTANA GUILLEN [Primary Care Provider] -
[2017-03-06] MEDS ORDERED: diphenhydrAMINE 25 MG CAPSULE PO ONE (22:49)
[2017-03-06 23:22] LABS: BASOPHILS # (AUTO) 0.12 10*3/UL; BASOPHILS % (AUTO) 1.5 % (0-1); EOSINOPHILS # (AUTO) 0.12 10*3/UL; EOSINOPHILS % (AUTO) 1.5 % (0-8); HEMATOCRIT 39.6 % (37.0-47.0); HEMOGLOBIN 13.5 g/dL (12.0-16.0); LYMPHOCYTES # (AUTO) 2.63 10*3/uL; MEAN CORPUSCULAR HEMOGLOBIN 30.1 PG (27-31); MEAN CORPUSCULAR HGB CONC 34.1 g/dL (33-37); MEAN CORPUSCULAR VOLUME 88.2 FL (81-99); MEAN PLATELET VOLUME 11.1 FL (7.4-12.2); MONOCYTES # (AUTO) 0.53 10*3/UL (0.3-0.8); MONOCYTES % (AUTO) 6.8 % (5-15); NEUTROPHILS # (AUTO) 4.38 10*3/UL; NEUTROPHILS % (AUTO) 56.2 % (50-80); PLATELET MORPHOLOGY COMMENT NORMAL MORPHOLOGY (NORM); RBC MORPHOLOGY COMMENT NORMAL MORPHOLOGY (NORM); RED BLOOD COUNT 4.49 10^6/uL (4.20-5.40); WBC MORPHOLOGY COMMENT NORMAL MORPHOLOGY (NORM)
[2017-03-06 23:32] LABS: BLOOD UREA NITROGEN 10 mg/dL (7-22); BUN/CREATININE RATIO 14.28 (6-20); CALCIUM 9.3 mg/dL (8.7-10.7); EST GLOMERULAR FILTRATION > 60 (>60 ml/min/1.73m(2)); SERUM ALBUMIN 4.2 g/dL (3.5-4.8)
== END 2017-03-07 00:25 | disposition home or self-care (01) ==
LOC: ER 21:55
DX: T39.8X5A Adverse effect of other nonopioid analgesics and antipyretics, not elsewhere classified, initial encounter (principal); R06.02 Shortness of breath; R51 Headache; R07.9 Chest pain, unspecified
CPT/HCPCS: 80053; 84443; 84484; 84703; 85025; 85379; 93005; 93010; 99283 ×2; Q0163